=== PATIENT | male | born 1980 ===

== ENCOUNTER 2017-05-13 03:57 | Emergency (ER) | payer OTHER ==
[2017-05-13 04:39] VITALS: O2SAT 97
--- NOTE | 2017-05-13 06:04 | C.PDOC ---
History Of Present Illness 36 y/o male c/o 4 day hx of left ear pain getting worse, unable to sleep last night. no fever , no discharge. no sore throat. no recent swimming in pool. Time Seen by Provider: 05/13/17 05:10 Chief Complaint (Nursing): ENT Problem History Per: Patient Onset/Duration Of Symptoms: Days (4) Current Symptoms Are (Timing): Worse Quality (Ear): Pain W/Touch Symptoms Have Been: Continuous Severity: Moderate Anticoagulant/Antiplatlet Use?: No Past Medical History Reviewed: Historical Data, Nursing Documentation, Vital Signs Vital Signs: Last Vital Signs Temp 98.6 F 05/13/17 06:43 Pulse 75 05/13/17 06:43 Resp 18 05/13/17 06:43 BP 142/75 05/13/17 06:43 Pulse Ox 97 05/15/17 22:46 - Medical History PMH: No Chronic Diseases Surgical History: No Surg Hx Family History: States: Unknown Family Hx - Social History Hx Alcohol Use: No Hx Substance Use: No - Immunization History Hx Tetanus Toxoid Vaccination: No Hx Influenza Vaccination: No Hx Pneumococcal Vaccination: No Review Of Systems Constitutional: Negative for: Fever, Chills ENT: Positive for: Ear Pain. Negative for: Ear Discharge, Nose Congestion, Throat Pain Skin: Negative for: Rash Neurological: Negative for: Weakness, Numbness Physical Exam - Physical Exam Appears: Non-toxic, No Acute Distress Skin: Warm, Dry Head: Atraumatic, Normacephalic Eye(s): bilateral: Normal Inspection Ear(s): Left: TM Erythema, Other (erythema in external canal), Right: Normal Nose: Normal Oral Mucosa: Moist Throat: Normal, No Erythema Neck: Normal ROM ED Course And Treatment O2 Sat by Pulse Oximetry: 97 Medical Decision Making Medical Decision Making: pt with worsening ear pain. will treat for otitis externa and medial;. f/u ent. Disposition Counseled Patient/Family Regarding: Diagnosis, Need For Followup, Rx Given - Disposition Referrals: Michael Hou MD [Staff Provider] - Siddhartha Marin MD [Medical Doctor] - Disposition: HOME/ ROUTINE Disposition Time: 06:20 Condition: STABLE Additional Instructions: Take drops and antibiotics as prescribed, take ibuprofen as prescribed. Follow up with Rich Marin and Dr Hou in the next few days. Return to ER for any worsening symptoms. Prescriptions: Amoxicillin 500 mg PO TID #30 tab Ibuprofen [Motrin] 600 mg PO TID #30 tab Neomycin/Polymyxin/Hydrocortis [Cortisporin Otic Susp] 4 drop OT QID #1 bottle - Clinical Impression Clinical Impression: Otitis externa, left, Otitis media, left
[2017-05-13 06:44] VITALS: BP 142/75; PULSE 75; RESP 18; TEMP 98.6
== END 2017-05-13 06:44 | disposition home or self-care (01) ==
LOC: C.ER 03:57
DX: H60.92 Unspecified otitis externa, left ear (principal); H66.92 Otitis media, unspecified, left ear